=== PATIENT | male | born 1985 | race American Indian/Alaskan Native ===

== ENCOUNTER 2021-05-29 05:43 | Emergency (ER) | payer SELFPAY ==
--- NOTE | 2021-05-29 05:51 | EDM.PDOC ---
ED HPI GENERAL MEDICAL PROBLEM - General Chief Complaint: Respiratory Problem Stated Complaint: COUGH Time Seen by Provider: 05/29/21 05:49 Source of Information: Reports: Patient - History of Present Illness INITIAL COMMENTS - FREE TEXT/NARRATIVE: 36-year-old male presents the emergency room with a cough. This started 3 days ago. He started to get an associated sore throat with the cough. He is not aware of any fevers or chills. He does not have diffuse body aches he has not had any loss of taste or smell. He has had no gastrointestinal symptoms no nausea vomiting diarrhea or abdominal discomfort. Patient denies any medical problems. He has not had the flu vaccine or the Covid vaccine. And he does not want them. The cough sometimes produces phlegm. Chest Pain Score (Numeric/FACES): 6 - Related Data Allergies Allergy/AdvReac Type Severity Reaction Status Date / Time No Known Allergies Allergy Verified 05/29/21 05:59 Home Meds: Home Meds Azithromycin [Zithromax] 250 mg PO DAILY #6 tablet 05/29/21 [Rx] ED ROS GENERAL - Review of Systems Review Of Systems: See Below Constitutional: Reports: No Symptoms HEENT: Reports: No Symptoms Respiratory: Reports: Cough, Sputum (Intermittent sputum production). Denies: Shortness of Breath, Wheezing, Pleuritic Chest Pain Cardiovascular: Reports: No Symptoms Endocrine: Reports: No Symptoms GI/Abdominal: Reports: No Symptoms : Reports: No Symptoms Musculoskeletal: Reports: No Symptoms Skin: Reports: No Symptoms Neurological: Reports: No Symptoms Psychiatric: Reports: No Symptoms ED EXAM, GENERAL - Physical Exam Exam: See Below Exam Limited By: No Limitations General Appearance: Alert, No Apparent Distress Eye Exam: Bilateral Eye: Normal Inspection Ears: Normal External Exam, Normal Canal, Hearing Grossly Normal, Normal TMs Nose: Normal Inspection, Normal Mucosa, No Blood Throat/Mouth: Normal Inspection, Normal Lips, Normal Teeth Head: Atraumatic, Normocephalic Neck: Normal Inspection, Supple, Non-Tender, Full Range of Motion. No: Lymphadenopathy (L), Lymphadenopathy (R) Respiratory/Chest: No Respiratory Distress, Lungs Clear, Normal Breath Sounds Cardiovascular: Regular Rate, Rhythm, No Edema, No Murmur GI/Abdominal: Normal Bowel Sounds, Soft, Non-Tender, Other (Obese) Course - Vital Signs Last Recorded V/S: Last Vital Signs Temp 35.9 C L 05/29/21 05:53 Pulse 82 05/29/21 05:53 Resp 20 05/29/21 05:53 BP 157/86 H 05/29/21 05:53 Pulse Ox 97 05/29/21 05:53 - Orders/Labs/Meds Orders: Active Orders 24 hr Category Date Time Status Chest 1V Frontal [CR] Stat Exams 05/29/21 06:03 Taken Labs: Laboratory Tests 05/29/21 05/29/21 Range/Units 06:04 06:15 SARS-CoV-2 RNA ([facility]) Negative (NEGATIVE) Group A Strep (PCR) Not detected (NOT DETECT) - Re-Assessments/Exams Free Text/Narrative Re-Assessment/Exam: 05/29/21 07:37 X-ray does not show any obvious infiltrate however I am concerned about a pneumonia that is lagging behind and x-ray findings, or perhaps a wet bronchitis or bacterial bronchitis. I will place him on a course of Zithromax. Departure - Departure Time of Disposition: 07:38 Disposition: Home, Self-Care 01 Clinical Impression: Bronchitis - Discharge Information Referrals: PCP,None [Primary Care Provider] - Forms: ED Department Discharge Additional Instructions: Return to the emergency room with any questions problems or worsening symptoms. I am concerned that you have a bacterial bronchitis albeit most bronchitis is viral or perhaps a pneumonia of the chest is not showing up on the x-ray yet. [facility]. Start this today take 2 pills today then 1 pill daily thereafter. Follow-up in the hospital clinic in 1 week for recheck. Their phone number is [phone] Sepsis Event Note (ED) - Focused Exam Vital Signs: Vital Signs Temp Pulse Resp BP Pulse Ox 05/29/21 05:53 35.9 C L 82 20 157/86 H 97 - My Orders Last 24 Hours: My Active Orders 05/29/21 06:03 Chest 1V Frontal [CR] Stat - Assessment/Plan Last 24 Hours: My Active Orders 05/29/21 06:03 Chest 1V Frontal [CR] Stat
--- NOTE | 2021-05-29 09:44 | CR ---
Chest: Portable view of the chest was obtained. Comparison: No prior chest imaging is available. Heart size and mediastinum are within normal limits for portable technique. Lungs are clear with no acute parenchymal change. Bony structures show nothing acute. Impression: 1. Nothing acute is seen on portable chest x-ray. Diagnostic code #1
== END 2021-05-29 07:55 | disposition home or self-care (01) ==
LOC: JD.ED 05:43
DX: J40 Bronchitis, not specified as acute or chronic (principal); Z20.822 Contact with and (suspected) exposure to COVID-19
CPT/HCPCS: 71045; 71045-26; 87651-QW; 99283-25; U0002

== ENCOUNTER 2021-07-25 10:02 | Emergency (ER) | payer SELFPAY ==
[2021-07-25 11:09] LABS: CORONAVIRUS COVID-19 NAA POSITIVE (NEGATIVE)
[2021-07-25] MEDS ORDERED: Azithromycin 250 MG Tab PO STA (12:21)
== END 2021-07-25 13:02 | disposition home or self-care (01) ==
LOC: JD.ED 10:02
DX: U07.1 COVID-19 (principal); E66.9 Obesity, unspecified; Z68.42 Body mass index [BMI] 45.0-49.9, adult; Z88.8 Allergy status to other drugs, medicaments and biological substances
CPT/HCPCS: 0241U; 36415; 71045; 80053; 85007; 85027; 87040; 99284; A9270

== ENCOUNTER 2023-04-22 09:37 | Emergency (ER) | payer SELFPAY ==
[2023-04-22 11:15] LABS: CORONAVIRUS COVID-19 NAA NEGATIVE (NEGATIVE); INFLUENZA A NAA NEGATIVE (NEGATIVE); RESPIRATORY SYNCYTIAL VIR NAA NEGATIVE (NEGATIVE)
== END 2023-04-22 12:30 | disposition home or self-care (01) ==
LOC: JD.ED 09:37
DX: J06.9 Acute upper respiratory infection, unspecified (principal); E66.9 Obesity, unspecified; Z68.42 Body mass index [BMI] 45.0-49.9, adult; Z86.16 Personal history of COVID-19; Z88.6 Allergy status to analgesic agent; Z20.822 Contact with and (suspected) exposure to COVID-19
CPT/HCPCS: 0241U; 99283

== ENCOUNTER 2025-03-31 12:58 | Emergency (ER) | payer SELFPAY ==
[2025-03-31] MEDS: Lidocaine/Epineph/Tetracaine 3 ML Syringe TOP ONE (13:52)
== END 2025-03-31 15:20 | disposition home or self-care (01) ==
LOC: JD.ED 12:58
DX: S91.114A Laceration without foreign body of right lesser toe(s) without damage to nail, initial encounter (principal); E66.9 Obesity, unspecified; Z88.8 Allergy status to other drugs, medicaments and biological substances; Z86.16 Personal history of COVID-19; Z68.43 Body mass index [BMI] 50.0-59.9, adult; W45.8XXA Other foreign body or object entering through skin, initial encounter
CPT/HCPCS: 12001; 99282; A9270; J2003